=== PATIENT | female | born 1985 | race Caucasian/White ===

== ENCOUNTER 2017-02-13 09:05 | Emergency (ER) | payer OTHER, BC ==
[~2017-02-13] VITALS: Ht 167.6 cm; Wt 77.3 kg
[2017-02-13 09:07] VITALS: BP 137/97; TEMP 100.2
[2017-02-13] MEDS ORDERED: NORCO 325 MG-51 TAB PO (09:58)
[2017-02-13] MEDS ORDERED: DOXYCYCLINE 10100 MG PO (09:58)
[2017-02-13 10:32] VITALS: PULSE 99
== END 2017-02-13 10:32 | disposition home or self-care (01) ==
LOC: COL.ER 09:05
DX: N61.0 Mastitis without abscess (principal)

== ENCOUNTER 2019-04-26 17:28 | Emergency (ER) | payer OTHER, BC ==
[~2019-04-26] VITALS: Ht 167.6 cm; Wt 79.5 kg
[~2019-04-26 17:28] MED LIST: BCP TD; DOXYCYCLINE 10100 MG PO; NORCO 325 MG-51 TAB PO
[2019-04-26 17:32] VITALS: TEMP 99.3
[2019-04-26] MEDS ORDERED: CELEXA 20MG20 MG/TAB PO (17:34)
[2019-04-26 18:09] LABS: BASO # 0.1 (0.0-0.2); BASO % 0.5 % (0.0-2.0); EOS # 0.1 (0.0-0.7); GRAN # 6.5 (1.4-6.5); GRAN % 71.2 % (42.2-75.2); HEMATOCRIT 40.7 % (37.0-47.0); HEMOGLOBIN 13.5 g/dl (12.5-16.0); LYMPH # 1.8 (1.2-3.4); MEAN CELL VOLUME 91 fl (80.0-100.0); MEAN CORPUSCULAR HEMOGLOBIN 30 pg (27.0-31.0); MEAN CORPUSCULAR HGB CONC 33 g/dl (33.0-37.0); MEAN PLATELET VOLUME 9.5 fl (7.4-10.4); MONO # 0.7 (0.1-0.6); MONO % 7.1 % (1.7-9.3); PLATELET COUNT 274 K/mm3 (130-400); RED BLOOD COUNT 4.49 M/mm3 (4.10-5.30); REDCELL DISTRIBUTION WIDTH-CV 12.3 % (11.5-14.5)
[2019-04-26 18:19] LABS: ALANINE AMINOTRANSFERASE 12 U/L (9-52); ALBUMIN 4.5 gm/dL (3.5-5.0); ALKALINE PHOSPHATASE 71 U/L (50-136); ANION GAP 11 mmol/L (7-16); AST,SGOT 22 U/L (15-37); BLOOD UREA NITROGEN 10 mg/dL (7-17); CALCIUM 9.6 mg/dL (8.4-10.2); CARBON DIOXIDE 26 mmol/L (22-30); CHLORIDE 104 mmol/L (98-107); CREATININE, serum 0.87 (0.52-1.25); GLUCOSE 90 mg/dL (74-106); POTASSIUM 3.7 mmol/L (3.4-5.0); SODIUM 142 mmol/L (137-145); TOTAL PROTEIN 7.6 gm/dL (6.4-8.2)
[2019-04-26 18:40] LABS: TROPONIN-I < 0.012 ng/mL (0.000-0.035)
[2019-04-26 18:41] LABS: COLLECTION METHOD CLEAN CATCH
[2019-04-26 18:51] LABS: MUCOUS Present /lpf; PH 7 (5-8); SQUAMOUS EPITHELIAL 0-2 /hpf; URINE APPEARANCE Clear; URINE BACTERIA Rare /hpf; URINE BILIRUBIN Negative (NEGATIVE); URINE BLOOD Negative (NEGATIVE); URINE COLOR Straw; URINE GLUCOSE Negative (NEGATIVE); URINE KETONE Negative (NEGATIVE); URINE LEUKOCYTE ESTERASE Negative (NEGATIVE); URINE NITRATE Negative (NEGATIVE); URINE PROTEIN(semi-quant) Negative (NEGATIVE); URINE RBC 0-2 /hpf; URINE UROBILINOGEN Negative (NEGATIVE)
[2019-04-26] MEDS ORDERED: LOPRESSOR 225 MG/TAB PO (19:04)
[2019-04-26 19:24] VITALS: BP 148/95; PULSE 74
== END 2019-04-26 19:31 | disposition home or self-care (01) ==
LOC: COL.ER 17:28
PROVIDERS: Family Medicine
DX: I10 Essential (primary) hypertension (principal); R00.0 Tachycardia, unspecified
CPT/HCPCS: J7030